=== PATIENT | male | born 1960 | race Caucasian/White ===

== ENCOUNTER 2016-10-22 14:59 | Observation (INO) | payer OTHER ==
--- NOTE | ~2016-10-22 | CT16 ---
[facility] A Service of [facility] RADIOLOGY TEXT RESULTS PATIENT: NESHA HERNANDEZ LOCATION: [facility] 55-01 : 64 UNIT #: [id number] AGE: [address]: Sade Stewart MD SEX: M ORDER DR: [id number] [facility] [address] [place], [place] [address] [id number] I MR#: [id number] #: [id number] NAME: NESHA HERNANDEZ : 1960 SEX: M STUDY DATE/TIME: 10/22/2016 17:13 UNIT: [facility] ROOM: [facility] STUDY DESCRIPTION: CT Angio Chest for PE Attending Physician: Digna Pena M.D. Ordering Physician: Esa Kaplan M.D. Primary Care Physician: No Primary Care Physician MEDICAL IMAGING REPORT This report is preliminary unless electronic signature is present EXAM CT angiography chest for PE HISTORY Chest pressure and near syncope since 12:00 today 10/22/2016 some short of air today. TECHNIQUE This CT exam was performed with one or more of the following radiation dose reduction techniques: automatic control, adjustment of mA and/or kV according to patient size, and iterative reconstruction. FINDINGS CT pulmonary angiography performed with intravenous administration 8 mL Isovue-370. Three-dimensional reconstructions performed through pulmonary arteries. Comparison 01/30/2014. Visualized thyroid unremarkable. No axillary mediastinal or hilar adenopathy. There are densely calcified mediastinal lymph nodes. Heart normal in size. No pleural effusions. Visualized portions of liver, gallbladder, spleen, small accessory spleen, pancreas unremarkable. 2.1 cm x 1.9 cm left adrenal nodule relatively low in density measured about 2 cm x 1.7 cm on prior examination. Most likely adenoma. 1.9 cm x 2 cm right relatively hypodense adrenal nodule previously measured 1.1 cm x 1.8-1.9 cm. Also probably an adenoma. These could be more conclusively characterized with adrenal protocol MRI or CT. In the absence of risk factors and given the slow rate of change, benign adenoma is favored. Visualized upper renal poles show small cortical cyst posterior left kidney unchanged. No upper abdominal adenopathy. Esophagus, stomach, visualized small bowel and colon unremarkable. Pulmonary parenchyma shows respiratory motion artifact. Patchy densities at the bilateral lung bases may in part represent atelectasis. Bibasilar pneumonitis is a consideration. Mild bronchial wall prominence centrally and in the bilateral [id number] lung zones particularly in the lower STS. [facility] A Service of [facility] RADIOLOGY TEXT RESULTS PATIENT: NESHA HERNANDEZ LOCATION: [place] [address] : 64 UNIT #: [id number] AGE: [address]: Sade Stewart MD SEX: M ORDER DR: corine. No bronchiectasis or mucous plugging. Correlate with any clinical signs or symptoms of bronchitis. No suspicious nodule. Calcified granuloma posterior right lower lobe. Pulmonary arteries show no evidence of pulmonary thromboembolic disease. Borderline dilatation of the aortic root measuring 4 cm in diameter at level of the sinuses of Valsalva, increased from 3.88 cm on prior study. The remainder of thoracic aorta appears normal in caliber. Visualized abdominal aorta normal in caliber. Visualized aortic branch vessels are patent. Incidental note made of at least two right renal arteries arising immediately adjacent to 1 another. The bony structures show no acute abnormality. Degenerative changes in the spine. Evidence of prior orthopedic intervention at lower cervical spine, with anterior fixation plate and screws partially visualized. IMPRESSION 1. No PE. 2. Borderline aneurysmal dilatation of the aortic root measuring 4 cm in diameter at level of sinuses of sinuses of Valsalva. Increased from about 3.88 cm in 2014. Remainder of the aorta is normal in caliber. No dissection. Visualized branch vessels patent. 3. Patchy densities in the bilateral dependent lower lobes probably predominately atelectatic in nature. Components of mild pneumonitis could be considered. 4. Mild bronchial wall thickening in the central and vyq-nb-uylpw lung zones bilaterally more pronounced in the bilateral lower lobes without bronchiectasis or mucous plugging. Correlate with any clinical signs or symptoms of bronchitis. 5. Bilateral hypodense adrenal nodules increased in size from 2014. See discussion above. Given relative low density and slow rate of change from 2014, these are favored to be bilateral adrenal adenomas. They are best fully characterized with adrenal protocol MRI or CT. In the absence of risk factors benign etiology favored. Please see remainder of incidental findings in body of report above. Dictated by... Gonzalez Ball M.D. THIS IS AN ELECTRONICALLY VERIFIED REPORT Gonzalez Ball M.D. at 10/24/2016 10:44 PM EVANGELIST/napoleon TD: 10/23/2016 01:10 JOB #: [id number] MEDICAL IMAGING REPORT Page 1 of 1 COPY
--- NOTE | ~2016-10-22 | EKG ---
PATIENT: NESHA HERNANDEZ UNIT #: [id number] Ventricular Rate: 86 BPM Atrial Rate: 86 BPM P-R Interval: 162 ms QRS Duration: 88 ms Q-T Interval: 352 ms QTC Calculation(Bezet): 421 ms P [place]: 42 degrees Calculated R [place]: 47 degrees Calculated T [place]: 37 degrees Diagnosis Line: Normal sinus rhythm Diagnosis Line: Normal ECG Diagnosis Line: When compared with ECG of 29-JAN-2014 12:00, Diagnosis Line: No significant change was found Diagnosis Line: Confirmed by TYRA SAGE MD ([id number]) on Diagnosis Line: 10/23/2016 1:47:09 PM INTERPRETING MD: RUSS
--- NOTE | ~2016-10-22 | HP ---
Unit #: [id number] #: [id number] Patient: NESHA HERNANDEZ [id number] [address] [address] [id number] I MR#: [id number] NAME: NESHA HERNANDEZ ROOM: 39929 Age: 56 Sex: M Admission Date: 10/22/2016 : 1960 Attending Physician: Nataly Pena M.D. Primary Care Physician: No Primary Care Physician HISTORY AND PHYSICAL CHIEF COMPLAINT Near syncope and chest pressure. HISTORY OF PRESENT ILLNESS The patient is a 56-year-old male with a history of smoking and transient ischemic attack and atheroma of the aortic arch, presented to the emergency room complaining of the near syncopal episode with a chest pressure. The patient was found to be hypotensive at the time of arrival with the blood pressure in the range of 80s. The patient had a CT of the head that is negative and the CT of the chest showed bronchiectasis concerning for the infiltrate and the bronchial wall thickening. The patient is being admitted for the above reasons. PAST MEDICAL HISTORY History of a transient ischemic attack, atheroma of the aortic arch, smoking. PAST SURGICAL HISTORY History of a cervical fusion. HOME MEDICATIONS He is on multivitamins, Coumadin, Lipitor, atenolol. ALLERGIES No known drug allergies. SOCIAL HISTORY Smoking at present one pack per day, no alcohol, no drugs. FAMILY HISTORY Negative for coronary artery disease. REVIEW OF SYSTEMS Fourteen-point review of symptoms performed and only pertinent positive findings as described above, remaining are negative. PHYSICAL EXAMINATION GENERAL APPEARANCE: On examination the patient is lying on a bed not in acute distress. VITAL SIGNS: Temperature is 98.3, pulse 84, respiration 21, sating 94% on 2 L and blood pressure 88/62. HEENT: Head atraumatic/normocephalic. Pupils equal, round and reacting to light and accommodation. Extraocular movements are intact. Unit #: [id number] #: [id number] Patient: NESHA HERNANDEZ NECK: Supple. LUNGS: Decreased air entry at the bases. No rhonchi. No wheezing. HEART: Regular rate and rhythm. ABDOMEN: Soft, positive bowel sounds. EXTREMITIES: No cyanosis. No clubbing. NEUROLOGIC: Awake, alert and oriented. No gross focal motor deficit. DIAGNOSTIC STUDIES LABORATORY DATA: UA is negative. Urine drug screen is negative. Troponin less than 0.05. D-dimer is 493. WBC 10.9, hemoglobin 15.3, hematocrit 45.6, platelets 162. Lactic acid is 1.4. Sodium 134, potassium 4.4, chloride 101, bicarb 24, BUN 14, creatinine 0.8, AST 20, ALT 20, alkaline phosphatase 94. ASSESSMENT 1. Syncopal episode. 2. Chest pressure. 3. Hypertension. PLAN 1. Plan to admit the patient to observation. 2. Continue with the IV fluids. 3. Hold the beta blockers. 4. Doubt infectious etiology. 5. Repeat the serial troponins. 6. Further recommendations will follow as more lab results are available. Dictated by Phoenix Walker/dasha TD: 10/22/2016 20:49 JOB #: [id number] HISTORY AND PHYSICAL Page 1 of 1 X NATALY PENA MD X HISTORY AND PHYSICAL
--- NOTE | ~2016-10-22 | DS ---
Unit #: [id number] #: [id number] Patient: MARY,TAB [id number] [address] [address] [id number] I MR#: [id number] NAME: NESHA VINSON ROOM: 553 Age: 56 Sex: M Admission Date: 10/22/2016 : 1960 Discharge Date: 10/23/2016 Attending Physician: Sade Stewart M.D. Primary Care Physician: No Primary Care Physician DISCHARGE SUMMARY PRINCIPAL DIAGNOSES 1. Hypotension secondary to hypovolemia. 2. Diarrhea. 3. Near syncope. 4. Chest pressure secondary to hypotension. 5. Tobaccoism. 6. Nonanion-gap metabolic acidosis. 7. Mild protein malnutrition. 8. Aortic root aneurysm measuring 4 cm. CONSULTANTS None. PROCEDURES CT angiogram of the chest, on September 21, 2016, which was negative for PE. There was aneurysmal dilatation of the aortic root measuring 4 cm. Patchy densities in the bilateral dependent lower lobes consistent with atelectasis. Mild bronchial wall thickening in the central and mid to lower lung zones bilaterally. Bilateral hyperdense adrenal nodules increased since 2013 most consistent with bilateral adrenal adenomas. CLINICAL HISTORY AND HOSPITAL COURSE Mr. Vinson is a nice, 56-year-old male who presents to the emergency department after an episode of near syncope at work. The patient was found to be hypotensive in the emergency department with a systolic blood pressure in the eighties. The patient underwent a CT scan of the head and a CT scan of the chest both of which were negative. He did have some associated chest pressure as well. He was placed in observation for evaluation. The patient was maintained on IV fluids and blood pressures have normalized. He has been maintained on telemetry all night and been in normal sinus rhythm. Serial troponins are negative. He is chest pain free currently. He does inform me this morning he has been having diarrhea for approximately one week. This is nonbloody and not associated with fever and no sick contacts. There is no associated abdominal pain and no association with food. I suspect he has been significantly dehydrated thus his episode of near syncope. He does have some risk factors for coronary artery disease but would prefer to have stress testing done as an outpatient which I think is appropriate. I am awaiting orthostatics this morning but, assuming that these are normal, I think he can be discharged home later today with close outpatient followup. DISCHARGE CONDITION Unit #: [id number] #: [id number] Patient: NESHA VINSON Stable. DISCHARGE STATUS Discharged to home. DISCHARGE MEDICATION Levaquin 500 mg p.o. daily for six days. DISCHARGE INSTRUCTIONS 1. The patient was instructed to follow a regular diet. 2. He can increase his activity as tolerated. 3. To refrain from any further tobacco use. FOLLOWUP The patient can follow up with the primary care physician of his choice in the next one month and would benefit from outpatient stress testing just to ensure that this is normal give his age, gender and tobacco use. Dictated by... Sade Stewart M.D. DANIEL/eben TD: 10/25/2016 10:19 JOB #: [id number] DISCHARGE SUMMARY Page 1 of 1 X Sade Stewart MD X DISCHARGE SUMMARY
--- NOTE | ~2016-10-22 | CT71 ---
[facility] A Service of [facility] RADIOLOGY TEXT RESULTS PATIENT: NESHA HERNANDEZ LOCATION: [facility] 55- : 64 UNIT #: [id number] AGE: [address]: Sade Stewart MD SEX: M ORDER DR: [id number] [facility] [address] [place], [place] [address] [id number] MR#: [id number] #: [id number] NAME: NESHA HERNANDEZ : 1960 SEX: M STUDY DATE/TIME: 10/22/2016 19:51 UNIT: [facility] ROOM: [facility] STUDY DESCRIPTION: CT Head Wo Contrast Attending Physician: Sade Stewart M.D. Ordering Physician: Esa Kaplan M.D. Primary Care Physician: No Primary Care Physician MEDICAL IMAGING REPORT This report is preliminary unless electronic signature is present EXAM CT of the head. HISTORY Chest pressure and near-syncope since 1200 today 10/22/2016. Some short of air today. Headache today. Pain behind forehead and top of head. TECHNIQUE CT head performed skull base through vertex without intravenous contrast. This CT exam was performed with one or more of the following radiation dose reduction techniques: automatic exposure control, adjustment of mA and/or kV according to patient size, and iterative reconstruction. COMPARISON 01/29/2014 FINDINGS Brainstem unremarkable. Cerebellum and cerebral hemispheres show normal villanueva matter-white matter differentiation. No hemorrhage. No evidence of acute cortical ischemia. Midline structures nondisplaced. Basal ganglia intact. Ventricles, cisterns, sulci normal in size and contour. No intra or extraaxial mass effect or abnormal intracranial fluid collection. Intraorbital soft tissues remarkable. Mucosal thickening and air-fluid levels in bilateral maxillary sinuses. Findings suggest components of acute maxillary sinus bilaterally. There is a suggestion of some periosteal thickening in the bilateral maxillary sinuses which could reflect a degree of chronic inflammation. The mastoid air cells are clear. No acute-appearing bony abnormality. [facility] A Service of [facility] RADIOLOGY TEXT RESULTS PATIENT: NESHA HERNANDEZ LOCATION: [facility] : 64 UNIT #: [id number] AGE: [address]: Sade Stewart MD SEX: M ORDER DR: IMPRESSION 1. Brain appears normal. 2. Mucosal thickening and air-fluid levels in bilateral maxillary sinuses suggesting components of both acute and chronic maxillary sinusitis bilaterally. Mild periosteal thickening in the bilateral maxillary sinus is also supportive of some degree of chronic inflammation. Dictated by... Gonzalez Ball M.D. THIS IS AN ELECTRONICALLY VERIFIED REPORT Gonzalez Ball M.D. at 10/23/2016 10:04 PM Geo TD: 10/23/2016 07:25 JOB #: [id number] MEDICAL IMAGING REPORT Page 1 of 1 COPY
[~2016-10-22 14:59] MED LIST: ATENOLOL25 MG PO; CERTAGEN PO; COUMADIN5 MG PO; LIPITOR40 MG PO
[2016-10-22 15:36] LABS: BASOPHIL% 0.2 % (0-2.5); EOSINOPHIL# 0.1 X10e3 (0-0.7); EOSINOPHIL% 1.1 % (0.0-7.0); HEMATOCRIT 45.6 % (38.0-50.0); HEMOGLOBIN 15.3 gm/dL (13.0-16.0); LYMPHOCYTE# 1.1 X10e3 (1.0-3.5); LYMPHOCYTE% 10.2 % (17.0-45.0); MEAN CELL VOLUME 96.8 FL (83-96); MEAN CORPUSCULAR HEMOGLOBIN 32.5 PG (28-34); MEAN CORPUSCULAR HGB CONC 33.6 g/dL (30-36); MEAN PLATELET VOLUME 8.1 FL (6.5-11.5); MONOCYTE# 0.6 X10e3 (0-1.0); MONOCYTE% 5.9 % (3.0-12.0); NEUTROPHIL% 82.6 % (40-75); PLATELET COUNT 162 X10e3 (140-420); RED BLOOD COUNT 4.71 X10e (3.90-5.60); RED CELL DISTRIBUTION WIDTH 12.8 % (11.0-15.5); WHITE BLOOD COUNT 10.9 X10e3 (4.0-10.5)
[2016-10-22 15:41] LABS: POC - CKMB <1.0 ng/mL (0.0-7.9); POC - TROPONIN <0.05 ng/mL (<=0.05)
[2016-10-22 16:01] LABS: ALBUMIN SERUM 3.9 g/dL (3.5-5.0); ALCOHOL BLOOD <5 mg/dL (0); ALKALINE PHOSPHATASE 94 U/L (32-92); ALT (SGPT) 20 U/L (10-40); AST (SGOT) 20 U/L (10-42); BILIRUBIN, DIRECT 0.1 mg/dL (0.0-0.2); BILIRUBIN,INDIRECT 0.6 mg/dL (0.0-0.9); BILIRUBIN,TOTAL 0.7 mg/dL (0.2-2.0); BLOOD UREA NITROGEN 14 mg/dL (9-23); CALCIUM SERUM 8.6 mg/dL (8.4-10.2); CARBON DIOXIDE 24 mmol/L (22-31); CHLORIDE 101 mmol/L (100-111); CREATININE SERUM 0.8 mg/dL (0.6-1.4); GLOM FILT RATE Estimated 101.3 mL/min (>60); GLUCOSE FASTING 96 mg/dL (70-110); LIPASE 25 U/L (22-51); POTASSIUM 4.4 mmol/L (3.5-5.1); PROTEIN TOTAL SERUM 6.8 g/dL (6.0-8.3); SODIUM 134 mmol/L (135-145)
[2016-10-22 16:19] LABS: DIFF IND NO
[2016-10-22 18:01] LABS: URINE SOURCE CLEAN CATCH
[2016-10-22 18:13] LABS: URINE APPEARANCE CLEAR; URINE BILIRUBIN NEG (NEG); URINE BLOOD NEG (NEG); URINE COLOR YELLOW; URINE GLUCOSE NEG (NEG); URINE KETONE NEG (NEG); URINE LEUKOCYTE ESTERASE NEG (NEG); URINE NITRATE NEG (NEG); URINE PH 7.5 (5-8); URINE PROTEIN NEG (NEG); URINE SPECIFIC GRAVITY 1.028 (1.003-1.035); URINE UROBILINOGEN 0.2 MG/DL (NEG)
[2016-10-22 18:21] LABS: POC - CKMB <1.0 ng/mL (0.0-7.9); POC - TROPONIN <0.05 ng/mL (<=0.05)
[2016-10-22 18:24] LABS: AMPHETAMINE NEG (NEG); BARBITURATES NEG (NEG); BENZODIAZEPINES NEG (NEG); COCAINE NEG (NEG); MARIJUANA NEG (NEG); OPIATES NEG (NEG); TRICYCLIC ANTIDEPRESSANTS NEG (NEG); U METHADONE NEG (NEG)
[2016-10-22 18:34] LABS: CULTURE INDICATED? NO
[2016-10-22] MEDS ORDERED: NO MEDICATIONS (19:15)
[2016-10-23 03:23] LABS: BASOPHIL% 0.3 % (0-2.5); EOSINOPHIL# 0.2 X10e3 (0-0.7); EOSINOPHIL% 2.3 % (0.0-7.0); HEMATOCRIT 42.5 % (38.0-50.0); HEMOGLOBIN 14.1 gm/dL (13.0-16.0); LYMPHOCYTE# 1.6 X10e3 (1.0-3.5); LYMPHOCYTE% 20.3 % (17.0-45.0); MEAN CELL VOLUME 96.9 FL (83-96); MEAN CORPUSCULAR HEMOGLOBIN 32.2 PG (28-34); MEAN CORPUSCULAR HGB CONC 33.3 g/dL (30-36); MEAN PLATELET VOLUME 8.3 FL (6.5-11.5); MONOCYTE# 0.9 X10e3 (0-1.0); MONOCYTE% 10.8 % (3.0-12.0); NEUTROPHIL# 5.3 X10e3 (1.5-7.1); NEUTROPHIL% 66.3 % (40-75); PLATELET COUNT 143 X10e3 (140-420); RED BLOOD COUNT 4.38 X10e (3.90-5.60); RED CELL DISTRIBUTION WIDTH 13.2 % (11.0-15.5)
[2016-10-23 03:26] LABS: DIFF IND NO
[2016-10-23 03:42] LABS: BUN/CREATININE RATIO 16.66; CALCIUM SERUM 8.1 mg/dL (8.4-10.2); CREATININE SERUM 0.9 mg/dL (0.6-1.4); GLOM FILT RATE Estimated 96.5 mL/min (>60); POTASSIUM 3.6 mmol/L (3.5-5.1)
[2016-10-23 04:10] LABS: %MB 3.6 % (0.0-4.0); MB 2.2 ng/ml
[2016-10-23 07:04] LABS: BASOPHIL% 0.4 % (0-2.5); EOSINOPHIL# 0.2 X10e3 (0-0.7); EOSINOPHIL% 2.9 % (0.0-7.0); HEMATOCRIT 43.4 % (38.0-50.0); HEMOGLOBIN 14.5 gm/dL (13.0-16.0); LYMPHOCYTE# 1.4 X10e3 (1.0-3.5); LYMPHOCYTE% 19.3 % (17.0-45.0); MEAN CELL VOLUME 96.4 FL (83-96); MEAN CORPUSCULAR HEMOGLOBIN 32.2 PG (28-34); MEAN CORPUSCULAR HGB CONC 33.5 g/dL (30-36); MEAN PLATELET VOLUME 8.7 FL (6.5-11.5); MONOCYTE# 0.9 X10e3 (0-1.0); MONOCYTE% 12.9 % (3.0-12.0); NEUTROPHIL# 4.8 X10e3 (1.5-7.1); NEUTROPHIL% 64.5 % (40-75); PLATELET COUNT 144 X10e3 (140-420); RED BLOOD COUNT 4.51 X10e (3.90-5.60); RED CELL DISTRIBUTION WIDTH 12.9 % (11.0-15.5); WHITE BLOOD COUNT 7.4 X10e3 (4.0-10.5)
[2016-10-23 07:41] LABS: ALBUMIN SERUM 3.2 g/dL (3.5-5.0); BILIRUBIN,TOTAL 0.8 mg/dL (0.2-2.0); BUN/CREATININE RATIO 17.5; CALCIUM SERUM 8.2 mg/dL (8.4-10.2); CREATININE SERUM 0.8 mg/dL (0.6-1.4); GLOM FILT RATE Estimated 101.3 mL/min (>60); PROTEIN TOTAL SERUM 5.8 g/dL (6.0-8.3)
[2016-10-23 08:34] LABS: DIFF IND NO
[2016-10-23] MEDS ORDERED: LEVAQUIN PO (09:44)
== END 2016-10-23 10:52 | disposition home or self-care (01) | DRG 641 ==
LOC: CED 14:59 → CEDOF 20:10 → C5B 22:18
PROVIDERS: Emergency Medicine; Internal Medicine
DX: E86.1 Hypovolemia (principal); I95.89 Other hypotension; R19.7 Diarrhea, unspecified; R55 Syncope and collapse; R07.89 Other chest pain; E87.2 Acidosis; E44.1 Mild protein-calorie malnutrition; Q25.43 Congenital aneurysm of aorta; F17.200 Nicotine dependence, unspecified, uncomplicated; Z98.1 Arthrodesis status; Z79.01 Long term (current) use of anticoagulants; Z86.73 Personal history of transient ischemic attack (TIA), and cerebral infarction without residual deficits
CPT/HCPCS: 36415; 70450; 71275; 80048; 80053; 80076; 80307; 81003; 82550; 82553; 83605; 83690; 84484; 85025; 85379; 93005; 93306; 94760; 96360; 96361; 96365; 96367; 99285; G0378; G0480; J0456; J0696; Q9967